=== PATIENT | female | born 1985 | race Caucasian/White ===

== ENCOUNTER 2024-04-19 13:45 | Inpatient (IN) | payer BC, SELFPAY ==
[2024-04-19 14:22] VITALS: BMI 31.2
[2024-04-19 14:24] VITALS: BP 121/83
[2024-04-19] MEDS: ZITHROMAX 1000 MG PO (14:46)
--- NOTE | 2024-04-19 14:54 | CON.NEO ---
Consultation - Neonatology
Maternal Labs
Blood Type: A Positive
Antibody Screen: Negative
RPR: Nonreactive
Rubella: Immune
Hep B S Ag: Negative
Hep C: Negative
HIV: Nonreactive
Group B Strep: Unknown
Chlamydia/GC: Negative
Consult
Nghia Tapia is a 37 year old mother (nurse) who presented at 32 4/7 weeks with SROM and back pain. Mom is noted to be ricky frequently although not feeling them. Maternal [id number] positive for anxiety/depression, no meds, GI
issues, eating disorder, anemia, past history of HPV, now negative. Mom is going to get Betamethasone and IV fluids. Long discussion with mom and dad about issues at 32 weeks, prematurity, RDS, Temp instability, surfactant, etc.
Consult requested by Dr. Davis.
Points discussed at consult:
- Management at delivery including the possibility of CPAP/intubation/surfactant discussed
- Respiratory: RDS possibility with possibility of worsening for 24-48 hrs, management including CPAP/surfactant/ventilator support may be required
- Nutrition: Hypoglycemia, need for IV fluids, gradual feed advance, Gavage feeding, importance of colostrum feeding, initiation of expression of colostrum within 3-4 hours, availability of donor milk, safety fo donor milk etc. were discussed.
- Procedures: Intubation, LMA use, CPAP, IV placement, blood tests, umbilical arterial or venous lines, gavage feedings were discussed
- CVS: possibility of PDA not discussed in detail at this time
- MOLDER FLOOR: Rare possibility of IVH and need for head US, grading of IVH and retirement effects of Grade III/IV although extremely rare at >32 weeks were discussed
- Jaundice possibility and need for phototherapy discussed
- Family Centered Care: Discussed FCC with emphasis on parental participation during sign off and during management rounds and is encouraged. Availability of tyrel eyes camera also discussed
Mom and Dad were given the opportunity to ask questions throughout and open invitation to call if any questions come as they absorb all the information given so far.
Face to Face Time
Total Yher-or-Grbb Time (in Minutes): ~30 min
Attending Housekeeping Manager: Caitlyn Waddell MD
Housekeeping Manager
[2024-04-19 14:56] LABS: % Basophils 0.3 % (0-2); % Eosinophils 1.7 % (0-6); % Immature Granulocytes 0.3 % (0-0.5); % Lymphocytes 31.2 % (20.5-51.1); % Monocytes 7.9 % (1.7-9.3); % Neutrophils 58.6 % (42.2-75.2); Absolute Eosinophils 0.1 10^3/uL (0-0.7); Absolute Lymphocytes 2.4 10^3/uL (1.2-3.4); Absolute Monocytes 0.6 10^3/uL (0.1-0.6); Absolute Neutrophils 4.6 10^3/uL (1.4-6.5); Hemoglobin 12.4 g/dL (12.0-16.0); Mean Corp Hgb Conc. 35.4 g/dL (33.0-37.0); Mean Corpuscular Hgb 31.8 pg (27.0-31.0); Mean Corpuscular Volume 89.7 fL (81.0-99.0); Mean Platelet Volume 11.8 fL (7.4-10.4); Nucleated Red Blood Cells % 0 %; Platelet Count 182 10^3/uL (130-400); Red Cell Dist. Width 12.7 % (11.5-14.5); White Blood Cell Count 7.8 10^3/uL (4.8-10.8)
[2024-04-19] MEDS: CELESTONE SOLUSPAN 2 MG IM (15:10)
[2024-04-19] MEDS: LR 1000 IV ×2 (15:22→16:45)
[2024-04-19] MEDS: AMPICILLIN 108 MG IV ×2 (15:39→21:10)
[2024-04-20] MEDS: LR 1000 IV (01:00)
[2024-04-20 01:43] LABS: Urine Albumin Negative (Neg - Trace); Urine Bilirubin Negative (Negative); Urine Character Clear (Clear); Urine Color Yellow; Urine Glucose Negative (Negative); Urine Ketone 1+ (Negative); Urine Leukocyte Trace (Negative); Urine Nitrite Negative (Negative); Urine Occult Blood Negative (Negative); Urine Specific Gravity 1.005 (<1.030); Urine Urobilinogen Negative (Neg - 1+)
[2024-04-20 01:53] LABS: Urine Bacteria Few (Negative); Urine Squamous Cell >30 /LPF (Few)
[2024-04-20] MEDS: AMPICILLIN 108 MG IV ×2 (02:58→09:13)
[2024-04-20] MEDS: MORPHINE SULFATE 2 MG IV (04:53)
[2024-04-20] MEDS: TUMS EX (EXTRA STRENGTH) CHEWABLE 2 TABLET PO (07:38)
[2024-04-20] MEDS: CELESTONE SOLUSPAN 2 MG IM (10:00)
[2024-04-20 11:08] LABS: Cord ABG Comment CORD BLOOD
[2024-04-20 11:16] LABS: B.E. Cord ABG -2.9 mMOL/L; HCO3 Cord ABG 23.7 mmol/L; O2 Saturation % Cord ABG 37.6 %; PCO2 Cord ABG 47 mmHg; PO2 Cord ABG 16 mmHg; pH Cord ABG 7.31
[2024-04-20 11:21] LABS: B.E. Cord ABG -3.6 mMOL/L; HCO3 Cord ABG 24.2 mmol/L; PCO2 Cord ABG 54 mmHg; PO2 Cord ABG 14 mmHg; pH Cord ABG 7.26
[2024-04-20] MEDS: ZITHROMAX INFUSION 250 IV (11:40)
[2024-04-20 11:57] VITALS: BP 121/83; BP 79/55
[2024-04-20 11:59] VITALS: BP 96/66
[2024-04-20 12:00] VITALS: BP 103/50
[2024-04-20] MEDS: ZOFRAN 4 MG IV (12:10)
[2024-04-20 12:15] VITALS: BP 122/62
[2024-04-20] MEDS: DEMEROL 12.5 MG IV (12:16)
[2024-04-20 12:30] VITALS: BP 100/70
[2024-04-20 12:45] VITALS: BP 114/59
[2024-04-20] MEDS: TORADOL 15 MG IV ×2 (13:26→19:57)
[2024-04-20] MEDS: BENADRYL 25 MG IV (13:26)
[2024-04-20] MEDS: PITOCIN 30 UNITS/NSS 500 ML IV (15:40)
[2024-04-20] MEDS: TYLENOL 650 MG PO (23:40)
[2024-04-21] MEDS: TORADOL 15 MG IV ×3 (02:07→14:01)
[2024-04-21 04:41] LABS: Hematocrit 26.6 % (37.0-47.0); Hemoglobin 9.4 g/dL (12.0-16.0); Mean Corp Hgb Conc. 35.3 g/dL (33.0-37.0); Mean Corpuscular Hgb 31.2 pg (27.0-31.0); Mean Corpuscular Volume 88.4 fL (81.0-99.0); Mean Platelet Volume 11.9 fL (7.4-10.4); Platelet Count 154 10^3/uL (130-400); Red Blood Cell Count 3.01 10^6/uL (4.20-5.40); Red Cell Dist. Width 12.6 % (11.5-14.5); White Blood Cell Count 15.8 10^3/uL (4.8-10.8)
[2024-04-21] MEDS: CLARITIN 10 MG PO (07:52)
[2024-04-21] MEDS: COLACE 100 MG PO (07:52)
[2024-04-21] MEDS: PRENATAL PLUS 1 TABLET PO (07:52)
--- NOTE | 2024-04-21 08:17 | W.PN.ANS.POP ---
Anesthesia Post Operative
- Anesthesia Post Op Note
Vital Signs Stable-See Nursing Note: Yes
Airway Patent: Yes
Adequate Pain Control: Yes
Change in Mental Status: No
Current Postoperative Nausea & Vomiting: No
Anesthesia Complications: No
General Anesthetic Recall: No
Unplanned Admission: No
Post Op Hydration Adequate: Yes
[2024-04-21] MEDS: FLUSH (NSS) 1 FLUSH IV (14:01)
[2024-04-21] MEDS: TYLENOL 650 MG PO (19:35)
[2024-04-21] MEDS: MYLICON 80 MG PO (23:01)
[2024-04-22] MEDS: TYLENOL 650 MG PO ×2 (02:26→08:43)
[2024-04-22] MEDS: TUMS 2 TABLET PO ×2 (02:27→08:43)
[2024-04-22] MEDS: CLARITIN PO (08:42)
[2024-04-22] MEDS: PRENATAL PLUS PO (08:43)
[2024-04-22] MEDS: FEOSOL 325 MG PO (08:43)
[2024-04-22] MEDS: COLACE PO (08:43)
[2024-04-22] MEDS: REGLAN 10 MG PO (08:59)
[2024-04-22] MEDS: DILAUDID 2 MG PO (22:38)
[2024-04-23] MEDS: TYLENOL 650 MG PO (04:16)
[2024-04-23] MEDS: CLARITIN 10 MG PO (09:01)
[2024-04-23] MEDS: PRENATAL PLUS 1 TABLET PO (09:01)
[2024-04-23] MEDS: FEOSOL 325 MG PO (09:02)
[2024-04-23] MEDS: MOTRIN 600 MG PO ×2 (09:02→14:35)
[2024-04-23 15:08] LABS: Syphilis/T. pallidum Ab Reflex Negative (Negative)
--- NOTE | 2024-04-27 07:35 | W.DS.TRANS ---
DC Summary - [employer]
-
Discharge Instructions:
Discharge Diagnosis/Procedures delvery
Instructions:
Stand-Alone Forms: LDRP Delivery
Changes to Home Medications: No
Discharge Medications:
DC Medications w/original date entered in [facility]
Lactobacillus 40-Bifidobact 3-S.thermophilus 100 billion cell capsule (Probiotic) 1 cap PO DAILY Supplement 04/19/24
ascorbic acid (vitamin C) 100 mg tablet (Vitamin C) 100 mg PO DAILY Supplement 04/19/24
docusate sodium 100 mg capsule (Stool Softener) 100 mg PO DAILY Constipation 04/19/24
loratadine 10 mg tablet (Claritin) 10 mg PO DAILY Allergies 04/19/24
prenat.vits,stewart,shg-kfad-glsdl 1 tab PO DAILY Supplement 04/19/24
acetaminophen 325 mg tablet 650 mg (2 x 325 mg) PO Q4HPRN PRN mild pain #0 tabs 04/23/24
ferrous sulfate 325 mg (65 mg iron) tablet (FeroSul) 325 mg PO DAILY #0 tabs 04/23/24
ibuprofen 600 mg tablet 600 mg PO Q6HPRN PRN cramps #30 tabs 04/23/24
sennosides 8.6 mg-docusate sodium 50 mg tablet (Stool Softener-Stimulant Laxative) 1 tab PO DAILYPRN PRN constipation #0 tabs 04/23/24
Home Medication Changes
Pending Results: No
Total time spent discharging patient (in min): 20
== END 2024-04-23 14:00 | disposition home or self-care (01) | DRG 786 ==
LOC: LDRP 13:45
PROVIDERS: Obstetrics & Gynecology; ADMITTING PHYSICIAN Obstetrics & Gynecology; CONSULT PHYSICIAN Pediatrics
PROC: 10D00Z1 Extraction of Products of Conception, Low, Open Approach (ICD-10-PCS; 2024-04-20)
PROC: 6A550ZT Pheresis of Cord Blood Stem Cells, Single (ICD-10-PCS; 2024-04-20)
DX: O42.113 Preterm premature rupture of membranes, onset of labor more than 24 hours following rupture, third trimester (principal); O41.1230 Chorioamnionitis, third trimester, not applicable or unspecified; F50.00 Anorexia nervosa, unspecified; F50.2 Bulimia nervosa; O99.354 Diseases of the nervous system complicating childbirth; O69.3XX0 Labor and delivery complicated by short cord, not applicable or unspecified; Z3A.32 32 weeks gestation of pregnancy; Z37.0 Single live birth; K44.9 Diaphragmatic hernia without obstruction or gangrene; O99.02 Anemia complicating childbirth; K21.9 Gastro-esophageal reflux disease without esophagitis; G43.909 Migraine, unspecified, not intractable, without status migrainosus; O76 Abnormality in fetal heart rate and rhythm complicating labor and delivery; K31.84 Gastroparesis; O99.62 Diseases of the digestive system complicating childbirth; O99.214 Obesity complicating childbirth; O99.344 Other mental disorders complicating childbirth; F41.9 Anxiety disorder, unspecified; F50.9 Eating disorder, unspecified; F32.A Depression, unspecified; Z87.440 Personal history of urinary (tract) infections; Z88.2 Allergy status to sulfonamides; Z88.8 Allergy status to other drugs, medicaments and biological substances; Z88.1 Allergy status to other antibiotic agents; Z91.010 Allergy to peanuts; Z90.49 Acquired absence of other specified parts of digestive tract; Z82.49 Family history of ischemic heart disease and other diseases of the circulatory system; Z82.5 Family history of asthma and other chronic lower respiratory diseases
CPT/HCPCS: 88307; 81003; 81015; 82803; 85025; 85027; 86780; 86850; 86900; 86901; 87070; 87086

== ENCOUNTER → 2025-05-13 13:20 | Outpatient (REF) | payer BC, SELFPAY | LOC: HWRAD 13:20 | PROVIDERS: ATTENDING PHYSICIAN Nurse Practitioner Family; FAMILY PHYSICIAN Family Medicine | DX: N93.9 Abnormal uterine and vaginal bleeding, unspecified (principal) | CPT/HCPCS: 76830; 76856 ==